=== PATIENT | female | born 1995 | race African-American/Black ===

== ENCOUNTER 2019-06-22 09:44 | Emergency (ER) | payer OTHER ==
[2019-06-22 11:39] LABS: BASOPHILS # (AUTO) 0.1 10^3/uL (0.0-0.1); BASOPHILS % (AUTO) 0.5 %; EOSINOPHILS # (AUTO) 0.4 10^3/uL (0.0-0.7); EOSINOPHILS % (AUTO) 3.7 %; HGB - HEMOGLOBIN 13.3 g/dL (12.0-16.0); LYMPHOCYTES # (AUTO) 2.5 10^3/uL (1.5-3.5); MEAN CORPUSCULAR HEMOGLOBIN 31.4 pg (27.0-31.0); MEAN CORPUSCULAR HGB CONC 33.7 g/dL (32.0-36.0); MEAN CORPUSCULAR VOLUME 93.2 fL (81.0-99.0); MEAN PLATELET VOLUME 9.2 fL (7.9-10.8); MONOCYTES # (AUTO) 0.8 10^3/uL (0.0-1.0); MONOCYTES % (AUTO) 6.9 %; NEUTROPHILS # (AUTO) 7.2 10^3/uL (1.5-6.6); NEUTROPHILS % (AUTO) 65.1 %; PLT - PLATELET COUNT 325 10^3/uL (130-450); RED BLOOD COUNT 4.24 10^6/uL (4.20-5.40); RED CELL DISTRIBUTION WIDTH 12.8 % (12.0-15.0)
--- NOTE | 2019-06-22 11:45 | ED Physician Documentation ---
History of Present Illness - Stated complaint Stated Complaint: ABD PX - Chief complaint Chief Complaint: Abd Pain - Additonal information Additional information: This is a 23-year-old female presents with persistent right lower quadrant abd ominal pain as well as foul vaginal discharge. Patient states that she has had some right lower quadrant abdominal discomfort for last 3 weeks, [place], showed a 7 cm ovarian cyst. She was told that they will keep their eye on it and that she should seek care if she has worsening symptoms. She has had continued small amount of spotting for the last several weeks. She is have a Mirena IUD, and reportedly had a negative hCG within the last several weeks. She has noticed some foul smelling vaginal discharge in the last 12 hours. She is monogamous with her . No fever, no history of abdominal surgeries. Review of Systems Constitutional: denies: Fever Cardiac: denies: Chest pain / pressure Respiratory: denies: Dyspnea GI: reports: Abdominal Pain : reports: Vaginal bleeding, Control Skin: denies: Rash Neurologic: denies: Generalized weakness Immunocompromised: denies: Immunocompromised PD PAST MEDICAL HISTORY - Past Surgical History Past Surgical History: Yes - Present Medications Home Medications: Ambulatory Orders Medication Instructions Recorded Confirmed Metronidazole [Flagyl] 500 mg PO BID #20 tablet 06/22/19 Nitrofurantoin Monohyd/M-Cryst 100 mg PO BID #10 capsule 06/22/19 [Macrobid 100 mg Capsule] - Allergies Allergies/Adverse Reactions: Allergies Allergy/AdvReac Type Severity Reaction Status Date / Time No Known Drug Allergies Allergy Verified 06/22/19 09:56 - Social History Does the pt smoke?: No Smoking Status: Never smoker Does the pt drink ETOH?: No Does the pt have substance abuse?: No - Immunizations Immunizations are current?: Yes - POLST Patient has POLST: No PD ED PE NORMAL - Vitals Vital signs reviewed: Yes - General General: Alert and oriented X 3, No acute distress - HEENT HEENT: PERRL - Cardiac Cardiac: RRR - Respiratory Respiratory: Clear bilaterally - Abdomen Abdomen: Soft, Non distended, Other (Mild suprapubic and RLQ tenderness to palpa tion. No rebound. No pain with hip flexion on right or left leg. No upper quadrant tenderness. 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 Thick discharge present in vaginal, no cervicitis or cervical motion tenderness.) - Derm Derm: Warm and dry - Extremities Extremities: No deformity - Neuro Neuro: Alert and oriented X 3 - Psych Psych: Normal mood, Normal affect Results - Vitals Vitals: Oxygen O2 Source Room air - Labs Labs: Microbiology 06/22/19 12:00 Urine Culture - Final Urine,Clean Catch NO AEROBIC GROWTH AT 24 HOURS Laboratory Tests 06/22/19 06/22/19 06/22/19 11:30 11:30 12:00 WBC 11.0 H RBC 4.24 Hgb 13.3 Hct 39.5 MCV 93.2 MCH 31.4 H MCHC 33.7 RDW 12.8 Plt Count 325 MPV 9.2 Neut # (Auto) 7.2 H Lymph # (Auto) 2.5 [place] # (Auto) 0.8 Eos # (Auto) 0.4 Baso # (Auto) 0.1 Absolute Nucleated RBC 0.00 Nucleated RBC % 0.0 Sodium 140 Potassium 3.7 Chloride 104 Carbon Dioxide 24 Anion Gap 12.0 BUN 11 Creatinine 0.8 Estimated GFR (MDRD) 106 Glucose 109 H Calcium 9.4 Total Bilirubin 0.4 AST 24 ALT 31 Alkaline Phosphatase 58 Total Protein 7.9 Albumin 4.1 Globulin 3.8 Albumin/Globulin Ratio 1.1 Lipase 31 Urine Color YELLOW Urine Clarity HAZY Urine pH 7.5 Ur Specific [place] 1.015 Urine Protein NEGATIVE Urine Glucose (UA) NEGATIVE Urine Ketones TRACE Urine Occult Blood MODERATE H Urine Nitrite NEGATIVE Urine Bilirubin NEGATIVE Urine Urobilinogen 0.2 (NORMAL) Ur Leukocyte Esterase TRACE H Urine RBC 0-5 Urine WBC >25 H Ur Squamous Epith Cells FEW Squamous Urine Bacteria Moderate H Urine Mucus Few Strands Ur Microscopic Review INDICATED Urine Culture Comments INDICATED Urine HCG, Qual C. glabrata (PCR) C. krusei (PCR) Rosalind species DNA Chlam trachomat DNA PCR N.gonorrhoeae DNA (PCR) T. vaginalis (PCR) Bact Vaginosis (PCR) 06/22/19 06/22/19 06/22/19 12:00 13:19 13:19 WBC RBC Hgb Hct MCV MCH MCHC RDW Plt Count MPV Neut # (Auto) Lymph # (Auto) [place] # (Auto) Eos # (Auto) Baso # (Auto) Absolute Nucleated RBC Nucleated RBC % Sodium Potassium Chloride Carbon Dioxide Anion Gap BUN Creatinine Estimated GFR (MDRD) Glucose Calcium Total Bilirubin AST ALT Alkaline Phosphatase Total Protein Albumin Globulin Albumin/Globulin Ratio Lipase Urine Color Urine Clarity Urine pH Ur Specific [place] 1.015 Urine Protein Urine Glucose (UA) Urine Ketones Urine Occult Blood Urine Nitrite Urine Bilirubin Urine Urobilinogen Ur Leukocyte Esterase Urine RBC Urine WBC Ur Squamous Epith Cells Urine Bacteria Urine Mucus Ur Microscopic Review Urine Culture Comments Urine HCG, Qual NEGATIVE C. glabrata (PCR) NEGATIVE C. krusei (PCR) NEGATIVE Rosalind species DNA NEGATIVE Chlam trachomat DNA PCR NEGATIVE N.gonorrhoeae DNA (PCR) NEGATIVE T. vaginalis (PCR) NEGATIVE NEGATIVE Bact Vaginosis (PCR) POSITIVE A PD MEDICAL DECISION MAKING - ED course Complexity details: considered differential (Ovarian torsion, appendicitis, TOA/PID, STD, UTI, BV, pyelonephritis) ED course: Pt presents with 3 weeks of RLQ pain, with a history of a right ovarian cyst. She has some mild RLQ tenderness, but a benign abdomen. On pelvic exam she has thick discharge, no cervicitis or cervical motion tenderness. She is low risk for STDs based on reported history. Pelvic swabs sent. Labs are notable for WBC of 11, CMP and lipase unremarkable, UA with >25 WBC concerning for UTI. HCG is negative. BV is positive on swab. Abdominal pathology such as appendicitis unlikely given her benign exam and duration of symptoms being 3 weeks without worsening. Pelvic US shows ovarian cysts (with right cyst smaller than prior) without signs of torsion. On repeat exam her abdomen is benign. I discussed the results, and prescribed her treatment for BV and a UTI. No flank tenderness to suggest pyelonephritis. She will be contacted if her swabs are positive for STI. I provided a copy of the US report and recommended close follow up with her OB or PCP. If she has worsening or new symptoms she should return to the ED. Pt agreed and was discharged. Departure - Departure Disposition: 01 Home, Self Care Clinical Impression: Abdominal pain Qualifiers: Abdominal location: right lower quadrant Qualified Code(s): R10.31 - Right lower quadrant pain UTI (urinary tract infection) Qualifiers: Urinary tract infection type: acute cystitis Hematuria presence: without hematuria Qualified Code(s): N30.00 - Acute cystitis without hematuria Condition: Stable Instructions: Vaginal Infec Bacterial Vaginosis, ED UTI Cystitis Female Follow-Up: Your, PCP or STAKE SETTER [Other] (Follow up within one week on symptoms) Prescriptions: Metronidazole [Flagyl] 500 mg PO BID #20 tablet Nitrofurantoin Monohyd/M-Cryst [Macrobid 100 mg Capsule] 100 mg PO BID #10 capsule Comments: You were seen today for abdominal pain, you appear to have bacterial vaginosis, and a UTI. The remainder of your swabs pending, you will be called if another infection is found. Please follow-up with your primary care provider, if you develop worsening pain, persistent vomiting, fever, or other concerning symptoms return to emergency department. Discharge Date/Time: 06/22/19 17:39
[2019-06-22 11:52] LABS: ALBUMIN 4.1 g/dL (3.2-5.5); ALBUMIN/GLOBULIN RATIO 1.1 (1.0-2.2); BILIRUBIN,TOTAL 0.4 mg/dL (0.2-1.0); CALCIUM 9.4 mg/dL (8.5-10.3); CREATININE 0.8 mg/dL (0.4-1.0); TOTAL PROTEIN 7.9 g/dL (6.7-8.2)
[2019-06-22 12:08] LABS: BILIRUBIN,URINE NEGATIVE (NEGATIVE); GLUCOSE, URINE (UA) NEGATIVE (NEGATIVE); KETONES,URINE (UA) TRACE mg/dL (NEGATIVE); LEUKOCYTE ESTERASE, URINE TRACE (NEGATIVE); NITRITE,URINE NEGATIVE (NEGATIVE); OCCULT BLOOD,URINE MODERATE (NEGATIVE); PH,URINE 7.5 PH (5.0-7.5); PROTEIN,URINE NEGATIVE (NEGATIVE); UROBILINOGEN,URINE 0.2 (NORMAL) E.U./dL (NORMAL)
[2019-06-22 12:12] LABS: CLARITY,URINE HAZY (CLEAR)
[2019-06-22 12:19] LABS: BACTERIA,URINE Moderate /HPF (None Seen); RBC,URINE 0-5 /HPF (0-5); SQUAMOUS EPITHELIAL CELL,UR FEW Squamous (<= Few)
[2019-06-22 12:20] LABS: MUCUS,URINE Few Strands
[2019-06-22 15:15] LABS: CANDIDA GROUP DNA NEGATIVE (NEGATIVE); CANDIDA KRUSEI DNA NEGATIVE (NEGATIVE); TRICHOMONAS VAGINALIS DNA NEGATIVE (NEGATIVE)
[2019-06-22] MEDS ORDERED: ACETAMINOPHEN 500 MG TABLET PO STA (15:23)
[2019-06-22 15:29] LABS: HCG UR QUAL NEGATIVE
--- NOTE | 2019-06-22 15:33 | Ultrasound Report ---
Reason: Hx of 7cm cyst on right ovary, with RLQ discomfort Procedure Date: 06/22/2019 Accession Number: [id number] / [id number] Procedure: US - Pelvic w/Transvag+Doppler Comp CPT Code: FULL RESULT: EXAM: PELVIC ULTRASOUND EXAM DATE: 06/22/2019 03:07 PM. CLINICAL HISTORY: Hx of 7cm cyst on right ovary, with RLQ discomfort. COMPARISON: None. TECHNIQUE: Realtime transabdominal pelvic scan performed to identify the uterus and adnexa and as an overview of other pelvic structures, followed by transvaginal scan to provide greater detail of the uterus and adnexa, with static image documentation. FINDINGS: Uterus: 9.7 x 4.6 x 5.3 cm, volume 123 cc. Anteverted position. Mild heterogenicity without fany focal abnormality. Masses: None. Endometrium: IUD appears appropriately positioned. Thin, normal-appearing endometrium, partially obscured by the IUD. Cervix: Nabothian cysts. Right Ovary: 3.9 x 3.0 x 2.7 cm, volume 17 cc. Blood flow documented. 2.7 x 1.9 x 2.3 cm simple dominant follicle/cyst. Left Ovary: 6.0 x 4.5 x 4.8 cm, volume 69 cc. Ovarian blood flow documented. Ovary is enlarged secondary to a simple appearing 4.5 x 3.9 x 4.4 cm cyst. Free Fluid: None. Other: None. IMPRESSION: 1. 2.7 cm simple appearing right ovarian cyst. 2. 4.5 cm simple appearing left ovarian cyst. 3. IUD appears appropriately positioned. 4. No other definite abnormalities of the pelvis demonstrated. Comparison prior outside exam recommended to assess for interval change. [facility]
[2019-06-22 17:39] VITALS: BP 117/77
[2019-06-22 18:02] LABS: TRICHOMONAS VAGINALIS DNA NEGATIVE (NEGATIVE)
== END 2019-06-22 17:39 | disposition home or self-care (01) ==
LOC: ED 09:44
DX: N76.0 Acute vaginitis (principal); B96.89 Other specified bacterial agents as the cause of diseases classified elsewhere; N30.00 Acute cystitis without hematuria; N83.292 Other ovarian cyst, left side; N83.291 Other ovarian cyst, right side; Z97.5 Presence of (intrauterine) contraceptive device
CPT/HCPCS: 36415; 76830; 76856; 80053; 81001; 81025; 83690; 85025; 87086; 87481; 87491; 87591; 87661; 87801; 93975; 99284; A9270; 81003